=== PATIENT | female | born 1955 | race Caucasian/White ===

== ENCOUNTER 2016-10-21 21:13 | Inpatient (IN) | payer OTHER ==
[~2016-10-21] VITALS: Ht 162.6 cm; Wt 88.5 kg
--- NOTE | ~2016-10-21 | CON ---
[place], [place] REPORT OF CONSULTATION NAME: ASHISH BEE UNIT #: [id number] ROOM: 507 DOCTOR: REGINALD SANTORO,MARCELLUS BIRTHDATE: [birth year] DOS: 10/24/2016 HISTORY OF PRESENT ILLNESS: A 61-year-old patient who presented with chief complaint of rectal bleed, underwent colonoscopic evaluation, was found to have ischemic colitis and meanwhile multiple nodules were found in her lungs that are of concern for metastatic carcinoma. Bone scan was done and normal whole body bone scan. C. diff positive for colitis, C. diff positivity has been noticed. Colonic biopsies were reviewed. ____ has been seen. H and H of 11 and 35. Urine culture, no growth. CT scan of the abdomen and CTA of the abdomen were obtained, which showed mild colitis, left colon and patent mesenteric arteries. 7 mm left pulmonary lobe nodule was identified. Labs reviewed, records reviewed, old data of consultation reflected. PAST MEDICAL HISTORY: Associated with CVA, hyperlipidemia, hemorrhoid, hypertension, diabetes, all have been recognized. PAST SURGICAL HISTORY: Noticed. REVIEW OF SYSTEMS: HEENT: Denies double vision, blurred vision. RESPIRATORY: Denies shortness of breath. CARDIOVASCULAR: Denies chest pain. DIGESTIVE SYSTEM: No hematemesis, no hematochezia. Some diarrhea. PHYSICAL EXAMINATION: VITAL SIGNS: Stable. HEENT: Head normocephalic, nontraumatic. Mouth and buccal mucosa benign. NECK: Supple, no thyromegaly, no cervical lymphadenopathy. CHEST: Symmetric anatomy, equal expansion. No wheeze, no rhonchi. HEART: Normal sinus rhythm, no gallop, no murmur. ABDOMEN: Soft. No hepato-organomegaly. Bowel sounds present. EXTREMITIES: No cyanosis, no pedal edema. NEUROLOGIC: Alert, oriented to time, place and person. IMPRESSION: Colitis, recently found C. diff positivity, lung nodules. Bone scans negative. Oncology consult on board. PLAN AND DISCUSSION: We are going to continue with Flagyl 500 mg IV q.8 hours. We are going to start her with vancomycin 250 mg p.o. q.i.d. from [facility]. Workup in progress. [place], [place] REPORT OF CONSULTATION NAME: ASHISH BEE UNIT #: [id number] ROOM: [facility] DOCTOR: MARCELLUS MONTELONGO MD BIRTHDATE: [birth year] MARCELLUS MONTELONGO MD CM:CONSTR:REPORT OF CONSULTATION 05 10/25/16 0418 interface
--- NOTE | ~2016-10-21 | PROC NOTE ---
[place], [place] PROCEDURE NOTE NAME: ASHISH BEE UNIT #: [id number] ROOM: 507 DOCTOR: MARCELLUS MONTELONGO MD BIRTHDATE: [birth year] DATE: 10/22/16 GASTROENDOSCOPIC REPORT INDICATIONS: The patient has presented with chief complaint of GI bleed, undergoing investigation. The patient has already been seen and assessed. The patient has experienced cramps, abdominal distress, and eventually concerned about being admitted. PAST MEDICAL HISTORY: Diabetes, hypertension, obesity, and hyperlipidemia. PAST SURGICAL HISTORY: Myomectomy, lumpectomy of breast. SOCIAL HISTORY: Social alcohol use and nonsmoker. FAMILY HISTORY: Noncontributory. ALLERGIES: TO METFORMIN. PROCEDURE: Today's procedure part of investigation is colonoscopy. PREMEDICATION: Versed and Diprivan. SCOPE: Olympus forward-viewing colonoscope 10L video. REPORT: After putting the patient in the left lateral position and after application of lubricant to rectal pouch and digital examination, the scope was introduced; thereafter, under direct visualization, I advanced through the length of colon without difficulty. Evidence of ischemic colitis, which is occupying left side of the colon, extending beyond the splenic flexure was noticed. Biopsies and photographic series were obtained. The scope was negotiated to the right colon, which is benign. The patient extubated, tolerated the procedure well. IMPRESSION: Left-sided ischemic colitis with involvement of some of the distal transverse colon, status post biopsy, photographic series. PLAN AND DISCUSSION: CTA of the abdomen, Flagyl 500 mg t.i.d., clear liquid diet, observation and clinical reassessment. CBC and basic metabolic panel tomorrow. [place], [place] PROCEDURE NOTE NAME: ASHISH BEE UNIT #: [id number] ROOM: 507 DOCTOR: MARCELLUS MONTELONGO MD BIRTHDATE: [birth year] MARCELLUS MONTELONGO MD CM:PROCNOTE:PROCEDURE NOTE [id number] MARCELLUS MONTELONGO MD
--- NOTE | ~2016-10-21 | CON ---
[place], [place] REPORT OF CONSULTATION [id number] UNIT #: [id number] ROOM: 507 DOCTOR: MIKAELA ANN MD BIRTHDATE: [birth year] DOS: 10/24/2016 PULMONARY CONSULTATION EVALUATION AND MANAGEMENT REASON FOR CONSULTATION: To assess the patient for pulmonary nodules. HISTORY OF PRESENT ILLNESS: A 61-year-old white female without any known pulmonary problem. The patient admitted to the hospital. The patient has been noted with bleeding, which was noted in the stools. Fresh blood was described. The patient came into the Emergency Room and had been hospitalized on 10/22/2016. The patient denies symptoms of abdominal pain. Denies symptoms of chest pain. The patient has been noted with some diarrhea as well. She is currently being assessed for the current bleeding from the intestine, underwent colonoscopy for this patient and the biopsy was done. CT of the abdomen for was done for this patient, which shows possibly pulmonary nodule in lower portion of the CT of the thorax images. She was recommended for dedicated CT scan of the chest, which was completed for this patient. She denies any symptoms of hemoptysis, coughing, sputum expectoration or any chest pain. REVIEW OF SYSTEMS: The rest of the review of systems for the patient is as follows: CONSTITUTIONAL SYMPTOMS: She has been noted with some fatigue. There was no tiredness, fever or chills. EYES: Denies any burning, redness, or tenderness. EARS, NOSE, THROAT SYMPTOMS: No sore throat, hoarseness, otalgia, postnasal drainage or epistaxis. CARDIOVASCULAR SYSTEM: Denies anginal pain, edema of the lower extremities or palpitations. GASTROINTESTINAL SYMPTOMS: Denies dysphagia, nausea, vomiting, diarrhea, abdominal pain, hematemesis, melena, hematochezia or syncopal episodes. SKIN: Denies any lesions or rashes. MUSCULOSKELETAL: Denies acute joint pain, redness, or tenderness. Remaining systems were reviewed with the patient, they were noted all negative. PAST MEDICAL HISTORY: The patient was reported with, 1. History of essential hypertension. 2. Hyperlipidemia. 3. Colon polyps. 4. Chronic obesity. 5. History of hemorrhoids. 6. Type 2 diabetes mellitus. SURGICAL HISTORY: Noted is, 1. Uterine fibroid removal. 2. Past colonoscopy. 3. Benign bilateral breast biopsies. SOCIAL HISTORY: The patient lives at home. Denies any history of any tobacco use or alcohol use for this patient. She never smoked cigarettes in the past. [place], [place] REPORT OF CONSULTATION NAME: ASHISH BEE UNIT #: [id number] ROOM: 507 DOCTOR: MIKAELA ANN MD BIRTHDATE: [birth year] She is and has 2 children. FAMILY HISTORY: Father at age of 6060 years old, complication of lung cancer. Mother at the age of 73 with complication of acute myocardial infarction. HOME MEDICATIONS: Were listed as use of aspirin, atenolol, enalapril, sliding scale insulin coverage, Levemir insulin, Victoza, Zocor and Januvia. DRUG ALLERGIES: Noted remarkable for allergies with use of METFORMIN. PHYSICAL EXAMINATION: GENERAL: A 61-year-old female who has been currently resting comfortably, sitting on the side of the bed at the time of the assessment. Height of the patient recorded 5 feet 4 inches, weight of 195 pounds, BMI 33.4. VITAL SIGNS: Shows a normal temperature over the last 24 hours, respiratory rate 19-20, heart rate of 61-62, blood pressure 136/60 for the patient to 123/51. HEENT: Head was atraumatic. Eyes, nonicterus. Decreased posterior pharyngeal space. CARDIOVASCULAR SYSTEM: S1, S2 is audible. LUNGS: The patient was noted without any wheezing or crackles. Good breath sounds noted in the lungs bilaterally. ABDOMEN: Soft with chronic obesity. Bowel sound present. EXTREMITIES: Does not show any acute edema, clubbing or cyanosis. CENTRAL NERVOUS SYSTEM: The patient's cranial nerves 2-12 intact. No focal deficits. MUSCULOSKELETAL SYMPTOMS: No deformities. SKIN: Showed no lesions or rashes. LABORATORY DATA: CMP of the patient that was done on October 21 in the Emergency noted normal BUN and creatinine and other LFTs and electrolytes. CBC of the patient on 10/21, WBC count 11.2, hemoglobin, hematocrit and platelet count were normal. PT/PTT for the patient on October 22 were normal. CBC on October 22 for the patient essentially noted normal. BMP on October 22, glucose 132, otherwise normal. The CBC of this morning for this patient, hemoglobin 11.7, hematocrit 35.8, platelet count and WBC count were normal. The abdominal CT ____ for this patient, which was done for this patient on this admission on 10/21 for this patient were noted without any acute abnormalities were described. The mammogram for the patient, which was done on August 12, 2016, was noted negative study. CT scan of the abdomen as a CTA which was done for the patient on 10/22/2016 for the patient described by the radiologist findings of mild colitis involving the left and proximal sigmoid colon ____ patient was described to be patent. A 7 mm left lower lobe pulmonary nodule of the patient was described for this patient as a new finding in the lower portion cuts of CT of the thoracic images. CT scan of the chest for this patient, which was done for the patient without contrast for the patient on 10/23 showed 13 x 11 mm nodule for the patient was noted in the left upper lung. Small area of infiltration atelectasis for the patient was noted in the right lower lobe. Another nodule which was present in the left lower lobe for this patient was also assessed and [place], [place] REPORT OF CONSULTATION NAME: ASHISH BEE UNIT #: [id number] ROOM: 507 DOCTOR: YADIRA SCHMIDT MD,[facility] BIRTHDATE: [birth year] measured as about 7-8 mm in the size. The view of the mediastinal window of the patient is limited because of lack of the IV contrast. Large amount of fat was noted in the mediastinum without any significant obviously visible lymphadenopathy. IMPRESSION: 1. The patient with 2 pulmonary nodules, which were noted in the left lung for this patient, the largest nodule noted at 13 mm in size and the smallest was noted as 7-8 mm in the left lower lobe as an incidental finding, significance of that is unknown. 2. 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 3. The patient with chronic obesity. 4. History of type 2 diabetes mellitus as well. There was no past history of tobacco use. 5. Family history of cancer of the lung, which has been known in this patient's father who at the age of 6060 years old. PLAN OF TREATMENT: At this time, no acute intervention will be necessary for the patient during the current acute hospitalization. Continue to manage ischemic colitis and the GI bleeding for this patient with medical management recommended by the dietetic technician. Outpatient assessment certainly needs to be done for the patient with initial PET scan assessment and possibility of needle aspiration biopsy of the left upper lung for this patient with CT guidance. The current nodule not be clearly seen on the chest x-ray and cannot read with a simple flexible fiberoptic bronchoscope. If the biopsy needs to be done, it could be only performed with the help of navigational bronchoscope, which has not been available. Other previous treatment, plan and management to be continued. Usual care. Further supportive therapy, plan and management. Usual treatment and plan of care. The assessment and management were discussed with the medical management specialist for this patient who is on service for the patient taking care of today, Frederick Reeder. MIKAELA MAY MD CM:CONSTR:REPORT OF CONSULTATION 1252 10/25/16 0013 interface
[~2016-10-21 21:13] MED LIST: ATENOLOL25 MG PO; CALCIUM 600600 M2 PO; DIABETA2.5 MG PO; ENALAPRIL5 MG PO; Ecotrin325 MG PO; FISH OIL1000 MG PO; JANUVIA100 MG PO; LEVEMIR100 U/ML SC; NAPROSYN500 MG PO; NORCO 325 MG-51 TAB PO; NOVOLOG100 U/ML SC; ONGLYZA5 MG PO; PARAFON FORTE500 MG PO; VIBRAMYCIN100 MG PO; VICTOZA; VITAMIN D50000 I3 PO; ZOCOR80 MG PO; ZOFRAN4 MG PO
[2016-10-21 21:18] VITALS: BP 142/82
[2016-10-21 22:14] LABS: BASO % 0.4 % (0.0-1.0); EOS # 0.2 10*3/uL (0.0-0.4); EOS % 1.5 % (1.0-4.0); LYMPH # 1.4 10*3/uL (1.3-4.4); LYMPH % 12.9 % (27.0-41.0); MEAN CELL VOLUME 84.6 fl (81.0-99.0); MEAN CORPUSCULAR HGB 27.6 pg (27.0-31.0); MEAN CORPUSCULAR HGB CONC 32.6 g/dl (33.0-37.0); MEAN PLATELET VOLUME 11.2 fl (9.6-12.3); MONO # 0.7 10*3/uL (0.1-1.0); NEUT # 8.8 10*3/uL (2.3-7.9); NEUT % 78.8 % (47.0-73.0); PLATELET COUNT AUTOMATED 193 10*3/uL (130-400); RED BLOOD COUNT 5.08 10*6/uL (4.10-5.10); RED CELL DISTRI WIDTH 12.9 % (0-14.5); WHITE BLOOD COUNT 11.2 10*3/uL (4.8-10.8)
[2016-10-21 22:28] LABS: ALBUMIN 3.7 gm/dl (3.1-4.5); ALKALINE PHOSPHATASE 80 U/L (45-117); BILIRUBIN, TOTAL 0.5 mg/dl (0.2-1.0); BUN 19 mg/dl (7-24); C-REACTIVE PROTEIN 0.96 MG/DL (0-0.3); CARBON DIOXIDE 28 mmol/L (21-32); CHLORIDE 107 mmol/L (98-107); EST GLOM FILT AFRICAN AMERICAN > 60 ml/min; GLUCOSE 110 mg/dL (65-99); MAGNESIUM 2.1 mg/dL (1.5-2.1); POTASSIUM 3.7 mmol/L (3.5-5.1); SGOT/AST 17 IU/L (3-35); SGPT/ALT 26 U/L (12-78); SODIUM 143 mmol/L (136-145); TOTAL PROTEIN 7.6 gm/dL (6.4-8.2)
[2016-10-21 22:39] LABS: BILIRUBIN 1+ (NEGATIVE); BLOOD NEGATIVE (NEGATIVE); CLARITY SL CLOUDY (CLEAR); COLOR YELLOW (YELLOW); GLUCOSE NEGATIVE (NEGATIVE); KETONE NEGATIVE (NEGATIVE); LEUKO ESTERASE NEGATIVE (NEGATIVE); NITRITE NEGATIVE (NEGATIVE); PH 5.5 (5.0-9.0); PROTEIN 1+ (NEGATIVE); SPECIFIC GRAVITY >= 1.030 (1.005-1.030)
[2016-10-21 22:46] LABS: BACTERIA 3+; URINE REFLEX COMMENT YES (NO)
[2016-10-21 23:03] VITALS: BP 146/78
[2016-10-22] VITALS (7 sets, daily range): BP systolic 114–155; BP diastolic 50–71
[2016-10-22 00:53] LABS: INTERNATIONAL NORM RATIO 1.1 (2.0-3.5); PROTHROMBIN TIME 11.3 SECONDS (9.0-12.4)
[2016-10-22] MEDS ORDERED: LEVEMIR10 ML SC (01:08)
[2016-10-22] MEDS ORDERED: VICTOZA6 MG/ML SC (01:12)
[2016-10-22] MEDS ORDERED: NOVOLOG10 ML SQ (01:16)
[2016-10-22 10:15] LABS: BASO % 0.4 % (0.0-1.0); EOS # 0.2 10*3/uL (0.0-0.4); EOS % 1.8 % (1.0-4.0); HEMATOCRIT 43.2 % (37.0-47.0); HEMOGLOBIN 14.2 g/dl (12.0-16.0); LYMPH # 1.4 10*3/uL (1.3-4.4); LYMPH % 16.9 % (27.0-41.0); MEAN CELL VOLUME 84.5 fl (81.0-99.0); MEAN CORPUSCULAR HGB 27.8 pg (27.0-31.0); MEAN CORPUSCULAR HGB CONC 32.9 g/dl (33.0-37.0); MEAN PLATELET VOLUME 11.1 fl (9.6-12.3); MONO # 0.5 10*3/uL (0.1-1.0); MONO % 5.9 % (3.0-9.0); NEUT # 6.2 10*3/uL (2.3-7.9); NEUT % 74.6 % (47.0-73.0); PLATELET COUNT AUTOMATED 187 10*3/uL (130-400); RED BLOOD COUNT 5.11 10*6/uL (4.10-5.10); WHITE BLOOD COUNT 8.3 10*3/uL (4.8-10.8)
[2016-10-22 10:29] LABS: BUN 16 mg/dl (7-24); CARBON DIOXIDE 25 mmol/L (21-32); CHLORIDE 108 mmol/L (98-107); EST GLOM FILT AFRICAN AMERICAN > 60 ml/min; GLUCOSE 132 mg/dL (65-99); POTASSIUM 4.1 mmol/L (3.5-5.1); SODIUM 144 mmol/L (136-145)
[2016-10-23] VITALS: BP 120/45
[2016-10-23 06:24] LABS: BASO % 0.6 % (0.0-1.0); EOS # 0.1 10*3/uL (0.0-0.4); EOS % 2.8 % (1.0-4.0); LYMPH # 1.2 10*3/uL (1.3-4.4); LYMPH % 23.2 % (27.0-41.0); MEAN CELL VOLUME 85.1 fl (81.0-99.0); MEAN CORPUSCULAR HGB 27.6 pg (27.0-31.0); MEAN CORPUSCULAR HGB CONC 32.4 g/dl (33.0-37.0); MEAN PLATELET VOLUME 11.6 fl (9.6-12.3); MONO # 0.4 10*3/uL (0.1-1.0); MONO % 6.9 % (3.0-9.0); NEUT # 3.4 10*3/uL (2.3-7.9); NEUT % 66.1 % (47.0-73.0); PLATELET COUNT AUTOMATED 168 10*3/uL (130-400); RED BLOOD COUNT 4.35 10*6/uL (4.10-5.10); RED CELL DISTRI WIDTH 12.7 % (0-14.5); WHITE BLOOD COUNT 5.1 10*3/uL (4.8-10.8)
[2016-10-23 06:30] LABS: HEMOGLOBIN A1c 7.3 % (4.8-5.6)
[2016-10-23 06:40] LABS: BUN 10 mg/dl (7-24); CARBON DIOXIDE 27 mmol/L (21-32); CHLORIDE 111 mmol/L (98-107); CHOLESTEROL 194 mg/dL (<200); EST GLOM FILT AFRICAN AMERICAN > 60 ml/min; GLUCOSE 93 mg/dL (65-99); HDL CHOLESTEROL 41 mg/dl (40-60); LDL CHOLESTEROL 127 mg/dL (9-159); PHOSPHOROUS 2.3 mg/dL (2.5-4.9); POTASSIUM 3.7 mmol/L (3.5-5.1); SODIUM 144 mmol/L (136-145); TRIGLYCERIDES 131 mg/dl (<150); VLDL CHOLESTEROL 26 mg/dL (6-40)
[2016-10-23 06:47] LABS: FREE T4 1.15 ng/dl (0.76-1.46); THYROID STIM HORMONE (HS) 0.682 uIU/ml (0.358-4.75)
[2016-10-23 07:30] LABS: VITAMIN D, 25-HYDROXY 19.9 ng/mL (30-100)
[2016-10-23 07:31] LABS: FOLIC ACID 13.6 ng/mL (>5.38)
[2016-10-23 08:00] VITALS: BP 118/52
[2016-10-23 12:00] VITALS: BP 128/48
[2016-10-23 16:00] VITALS: BP 130/54
[2016-10-23 20:38] VITALS: BP 123/51
[2016-10-24] VITALS: BP 116/52
[2016-10-24 06:10] LABS: BASO % 0.6 % (0.0-1.0); EOS # 0.2 10*3/uL (0.0-0.4); HEMATOCRIT 35.8 % (37.0-47.0); HEMOGLOBIN 11.7 g/dl (12.0-16.0); LYMPH # 1.3 10*3/uL (1.3-4.4); LYMPH % 26.7 % (27.0-41.0); MEAN CELL VOLUME 84.2 fl (81.0-99.0); MEAN CORPUSCULAR HGB 27.5 pg (27.0-31.0); MEAN CORPUSCULAR HGB CONC 32.7 g/dl (33.0-37.0); MEAN PLATELET VOLUME 11.5 fl (9.6-12.3); MONO # 0.3 10*3/uL (0.1-1.0); MONO % 7.1 % (3.0-9.0); NEUT # 2.9 10*3/uL (2.3-7.9); NEUT % 61.2 % (47.0-73.0); PLATELET COUNT AUTOMATED 168 10*3/uL (130-400); RED BLOOD COUNT 4.25 10*6/uL (4.10-5.10); RED CELL DISTRI WIDTH 12.9 % (0-14.5); WHITE BLOOD COUNT 4.8 10*3/uL (4.8-10.8)
[2016-10-24 08:00] VITALS: BP 136/60
[2016-10-24 13:00] VITALS: BP 149/62
[2016-10-24 17:17] VITALS: BP 139/59
[2016-10-25] VITALS: BP 149/61
[2016-10-25 06:16] LABS: BASO % 0.4 % (0.0-1.0); EOS # 0.2 10*3/uL (0.0-0.4); EOS % 4.1 % (1.0-4.0); HEMOGLOBIN 11.1 g/dl (12.0-16.0); LYMPH # 1.2 10*3/uL (1.3-4.4); LYMPH % 23.8 % (27.0-41.0); MEAN CELL VOLUME 85.4 fl (81.0-99.0); MEAN CORPUSCULAR HGB 27.9 pg (27.0-31.0); MEAN CORPUSCULAR HGB CONC 32.6 g/dl (33.0-37.0); MEAN PLATELET VOLUME 11.5 fl (9.6-12.3); MONO # 0.4 10*3/uL (0.1-1.0); MONO % 6.8 % (3.0-9.0); NEUT # 3.3 10*3/uL (2.3-7.9); NEUT % 64.5 % (47.0-73.0); PLATELET COUNT AUTOMATED 158 10*3/uL (130-400); RED BLOOD COUNT 3.98 10*6/uL (4.10-5.10); WHITE BLOOD COUNT 5.1 10*3/uL (4.8-10.8)
[2016-10-25 06:36] LABS: BUN 8 mg/dl (7-24); CARBON DIOXIDE 24 mmol/L (21-32); CHLORIDE 114 mmol/L (98-107); EST GLOM FILT AFRICAN AMERICAN > 60 ml/min; GLUCOSE 130 mg/dL (65-99); POTASSIUM 3.8 mmol/L (3.5-5.1); SODIUM 146 mmol/L (136-145)
[2016-10-25 08:00] VITALS: BP 133/52
[2016-10-25] MEDS ORDERED: METRONIDAZOLE500 M1 PO (10:32)
== END 2016-10-25 11:00 | disposition home or self-care (01) | DRG 378 ==
LOC: ED 21:13 → 5E 23:13 → EDHOLD 23:13 → 5E 23:43
PROVIDERS: Emergency Medicine Emergency Medical Services; Internal Medicine; Student in an Organized Health Care Education/Training Program
PROC: 0DBE8ZX Excision of Large Intestine, Via Natural or Artificial Opening Endoscopic, Diagnostic (ICD-10-PCS; principal; 2016-10-22)
DX: K92.2 Gastrointestinal hemorrhage, unspecified (principal); K55.9 Vascular disorder of intestine, unspecified; A04.7 Enterocolitis due to Clostridium difficile; E11.65 Type 2 diabetes mellitus with hyperglycemia; I10 Essential (primary) hypertension; E78.5 Hyperlipidemia, unspecified; K64.9 Unspecified hemorrhoids; D12.5 Benign neoplasm of sigmoid colon; K62.1 Rectal polyp; R80.9 Proteinuria, unspecified; E66.9 Obesity, unspecified; R91.1 Solitary pulmonary nodule; Z80.1 Family history of malignant neoplasm of trachea, bronchus and lung; Z82.49 Family history of ischemic heart disease and other diseases of the circulatory system; Z88.8 Allergy status to other drugs, medicaments and biological substances; Z79.82 Long term (current) use of aspirin; Z79.4 Long term (current) use of insulin; Z79.899 Other long term (current) drug therapy; Z68.30 Body mass index [BMI] 30.0-30.9, adult

== ENCOUNTER → 2016-11-28 | Day surgery (SDC) | payer OTHER ==
[~2016-11-28] VITALS: Ht 162.5 cm; Wt 88.5 kg
[2016-11-28] VITALS (7 sets, daily range): BP systolic 139–175; BP diastolic 58–82
[~2016-11-28] MED LIST changes: +LEVEMIR10 ML SC; +METRONIDAZOLE500 M1 PO; +NOVOLOG10 ML SQ; +VICTOZA6 MG/ML SC
== END | disposition home or self-care (01) ==
LOC: RAD 11-21 13:00 → EDSTATUS 13:00 → SDC 14:38
DX: R91.1 Solitary pulmonary nodule (principal)

== ENCOUNTER 2018-04-13 04:17 | Emergency (ER) | payer OTHER ==
[~2018-04-13] VITALS: Ht 162.5 cm; Wt 81.6 kg
--- NOTE | ~2018-04-13 | EKG ---
[place], [place] ELECTROCARDIOGRAM REPORT NAME: ASHISH BEE UNIT #: [id number] ROOM: DOCTOR: EPIPHANY DRAFT REPORT BIRTHDATE: [birth year] [facility] Test Date: 2018-04-13 Test Time: 05:05:46 Pat Name: ASHISH BEE Department: Room: Gender: F Director Of Flight Operations: : 1955 Requested By: SOPHIE DAVID Order Number: [id number] Reading MD: Lazaro Garcia MD Measurements Intervals Falcon Rate: 75 P: 44 MD: 147 QRS: -26 QRSD: 93 T: 9 QT: 383 QTc: 428 Interpretive Statements Sinus rhythm Poor precordial R-wave progression No previous ECG available for comparison Electronically Signed On 04-13-2018 18:36:55 PDT by Lazaro Garcia MD CM:EKGRPT:ELECTROCARDIOGRAM REPORT [id number] SOPHIE ESCOBAR DRAFT REPORT SOPHIE DAVID DO
[2018-04-13 05:20] LABS: BASO # 0.1 10*3/uL (0.0-0.1); BASO % 0.5 % (0.0-1.0); EOS # 0.2 10*3/uL (0.0-0.4); EOS % 2.3 % (1.0-4.0); HEMATOCRIT 43.4 % (37.0-47.0); LYMPH # 1.4 10*3/uL (1.3-4.4); LYMPH % 14.9 % (27.0-41.0); MEAN CELL VOLUME 84.6 fl (81.0-99.0); MEAN CORPUSCULAR HGB 27.3 pg (27.0-31.0); MEAN CORPUSCULAR HGB CONC 32.3 g/dl (33.0-37.0); MEAN PLATELET VOLUME 11.3 fl (9.6-12.3); MONO # 0.6 10*3/uL (0.1-1.0); MONO % 6.3 % (3.0-9.0); NEUT # 7.1 10*3/uL (2.3-7.9); NEUT % 75.5 % (47.0-73.0); PLATELET COUNT AUTOMATED 210 10*3/uL (130-400); RED BLOOD COUNT 5.13 10*6/uL (4.10-5.10); RED CELL DISTRI WIDTH 13.5 % (0-14.5); WHITE BLOOD COUNT 9.4 10*3/uL (4.8-10.8)
[2018-04-13 05:35] LABS: ALBUMIN 3.9 gm/dl (3.1-4.5); ALKALINE PHOSPHATASE 94 U/L (45-117); BUN 19 mg/dl (7-24); CHLORIDE 106 mmol/L (98-107); CREATININE 1.05 mg/dL (0.55-1.02); LIPASE 287 U/L (73-393); SGOT/AST 20 IU/L (3-35); SGPT/ALT 42 U/L (12-78); SODIUM 140 mmol/L (136-145); TOTAL PROTEIN 7.8 gm/dL (6.4-8.2)
== END 2018-04-13 06:58 | disposition home or self-care (01) ==
LOC: ED 04:17
PROVIDERS: Emergency Medicine
DX: J98.01 Acute bronchospasm (principal); K59.8 Other specified functional intestinal disorders; I10 Essential (primary) hypertension; E11.9 Type 2 diabetes mellitus without complications; E78.5 Hyperlipidemia, unspecified; Z88.8 Allergy status to other drugs, medicaments and biological substances; Z79.4 Long term (current) use of insulin; Z79.82 Long term (current) use of aspirin; Z79.899 Other long term (current) drug therapy; Z86.73 Personal history of transient ischemic attack (TIA), and cerebral infarction without residual deficits; Z85.118 Personal history of other malignant neoplasm of bronchus and lung; Z98.890 Other specified postprocedural states

== ENCOUNTER → 2018-12-08 | Outpatient (CLI) | payer OTHER ==
[2018-12-08 08:24] LABS: HEMATOCRIT 45.7 % (37.0-47.0); HEMOGLOBIN 14.2 g/dl (12.0-16.0); MEAN CELL VOLUME 87.7 fl (81.0-99.0); MEAN CORPUSCULAR HGB 27.3 pg (27.0-31.0); MEAN CORPUSCULAR HGB CONC 31.1 g/dl (33.0-37.0); MEAN PLATELET VOLUME 11.1 fl (9.6-12.3); RED BLOOD COUNT 5.21 10*6/uL (4.10-5.10); RED CELL DISTRI WIDTH 14.7 % (0-14.5); WHITE BLOOD COUNT 6.6 10*3/uL (4.8-10.8)
[2018-12-08 08:45] LABS: ALBUMIN 3.9 gm/dl (3.1-4.5); ALKALINE PHOSPHATASE 100 U/L (45-117); BUN 17 mg/dl (7-24); CHLORIDE 110 mmol/L (98-107); CHOLESTEROL 159 mg/dL (<200); CREATININE 0.98 mg/dL (0.55-1.02); HDL CHOLESTEROL 52 mg/dl (40-60); LDL CHOLESTEROL 88 mg/dL (9-159); POTASSIUM 3.9 mmol/L (3.5-5.1); SGOT/AST 16 IU/L (3-35); SGPT/ALT 32 U/L (12-78); SODIUM 143 mmol/L (136-145); TRIGLYCERIDES 97 mg/dl (<150); VLDL CHOLESTEROL 19 mg/dL (6-40)
== END | disposition home or self-care (01) ==
LOC: LAB 07:47
PROVIDERS: Physician Assistant
DX: E11.9 Type 2 diabetes mellitus without complications (principal); I10 Essential (primary) hypertension

== ENCOUNTER 2019-05-24 18:12 | Emergency (ER) | payer OTHER ==
[~2019-05-24] VITALS: Ht 162.5 cm; Wt 88.5 kg
[2019-05-24] MEDS ORDERED: VIBRAMYCIN100 MG PO (19:46)
[2019-05-24] MEDS ORDERED: TESSALON PERLE100 M1 PO (19:46)
== END 2019-05-24 20:04 | disposition home or self-care (01) ==
LOC: ED 18:12
DX: J06.9 Acute upper respiratory infection, unspecified (principal); I10 Essential (primary) hypertension; E11.9 Type 2 diabetes mellitus without complications; Z85.118 Personal history of other malignant neoplasm of bronchus and lung; Z88.8 Allergy status to other drugs, medicaments and biological substances; Z79.899 Other long term (current) drug therapy; Z79.4 Long term (current) use of insulin; Z79.82 Long term (current) use of aspirin; Z86.73 Personal history of transient ischemic attack (TIA), and cerebral infarction without residual deficits

== ENCOUNTER 2019-10-18 12:32 | Inpatient (IN) | payer OTHER ==
[~2019-10-18] VITALS: Ht 162.5 cm; Wt 79.2 kg
[~2019-10-18 12:32] MED LIST changes: +TESSALON PERLE100 M1 PO
[2019-10-18 12:39] VITALS: BP 152/70
[2019-10-18 13:28] LABS: HEMATOCRIT 49.8 % (37.0-47.0); MEAN CELL VOLUME 85.4 fl (81.0-99.0); MEAN CORPUSCULAR HGB 27.8 pg (27.0-31.0); MEAN CORPUSCULAR HGB CONC 32.5 g/dl (33.0-37.0); MEAN PLATELET VOLUME 11.3 fl (9.6-12.3); PLATELET COUNT AUTOMATED 188 10*3/uL (130-400); RED BLOOD COUNT 5.83 10*6/uL (4.10-5.10); RED CELL DISTRI WIDTH 13.1 % (0-14.5); WHITE BLOOD COUNT 8.1 10*3/uL (4.8-10.8)
[2019-10-18 13:38] LABS: ACT PARTIAL THROMBO TIME 25.2 SECONDS (20.0-32.1)
[2019-10-18 13:44] LABS: ALKALINE PHOSPHATASE 110 U/L (45-117); BUN 19 mg/dl (7-24); CHLORIDE 107 mmol/L (98-107); LIPASE 99 U/L (73-393); POTASSIUM 3.6 mmol/L (3.5-5.1); SGOT/AST 19 IU/L (3-35); SGPT/ALT 31 U/L (12-78); SODIUM 137 mmol/L (136-145); TOTAL PROTEIN 8.3 gm/dL (6.4-8.2)
[2019-10-18 13:45] LABS: TROPONIN I < 0.015 ng/ml (<0.045)
--- NOTE | 2019-10-18 13:46 | NUR ---
LAB CALLED WITH CRITICAL LACTIC OF 2.7. DR. RUSSELL NOTIFIED.
[2019-10-18 13:47] LABS: ATYPICAL LYMPHS 1 % (0-0); PLATELET SUFFICIENCY NORMAL (NORMAL); TOTAL CELLS COUNTED 100 #CELLS
[2019-10-18 14:15] LABS: BILIRUBIN NEGATIVE (NEGATIVE); CLARITY SL CLOUDY (CLEAR); COLOR YELLOW (YELLOW); GLUCOSE 2+ (NEGATIVE); KETONE TRACE (NEGATIVE)
[2019-10-18 14:16] LABS: BLOOD 1+ (NEGATIVE); SPECIFIC GRAVITY 1.015 (1.005-1.030); UROBILINOGEN 0.2 E.U./dl (0.2-1.0)
[2019-10-18 14:21] LABS: LEUKO ESTERASE NEGATIVE (NEGATIVE); NITRITE NEGATIVE (NEGATIVE)
[2019-10-18 14:26] LABS: BACTERIA 3+; YEAST 2+
[2019-10-18 16:45] VITALS: BP 150/64
--- NOTE | 2019-10-18 16:47 | NUR ---
THIS NURSE GOES IN TO CHECK ON PATIENT AND NOTICED THAT HER IV WAS OUT AND HER FLUIDS WERE LEAKING. SO THIS NURSE GOES TO GET PATIENT UP AND SHE NEEDED ASSIST TO THE SINK TO WASH HER HAND. PT SEEMED CONFUSED, HOWEVER SHE KNEW WHERE SHE WAS AND WHAT DAY AND YEAR IT WAS. PT WAS GIVEN NAUSEA MEDICATION THAT SHE HAD NEVER HAD. PT ASSISTED BACK TO BED AND THIS NURSE WENT TO GET DR. RUSSELL AND HE CAME TO ASSESS PT.
--- NOTE | 2019-10-18 17:32 | NUR ---
PT RESTING IN BED WATCHING TV. WAS ASSISTED TO BATHROOM IN WHEELCHAIR. PT ANSWERING QUESTIONS APPROPRIATELY. CALL LIGHT WITHIN REACH.
[2019-10-18 17:46] VITALS: BP 152/64
--- NOTE | 2019-10-18 19:16 | NUR ---
THIS NURSE WENT TO CHECK PATIENTS GLUCOSE AND IT CAME BACK 40. DR. DAVID NOTIFIED. ORDER BY DR. MARQUEZ TO GIVE PRN FLOOR ORDER FOR DEXTROSE 10 250 ML/HR.
--- NOTE | 2019-10-18 19:16 | NUR ---
MEDICATION ORDER FOR D10W WAS VERIFIED BY JOSEPH PACHECO.
[2019-10-18 19:30] VITALS: BP 137/59
--- NOTE | 2019-10-18 20:00 | NUR ---
CALLED THE [facility] FLOOR AND THEY THEY STATED THE NURSE WILL NOW BE TYRONE BAUTISTA. ROOM IS JUST NOW BEING CLEANED.
--- NOTE | 2019-10-18 20:12 | NUR ---
SPOKE TO DR. MARCELINO AND GAVE BLOOD GLUCOSE OF 147. ASKED IF HE WASNTED TO CONTINUE THE D10W OR IF HE WANTED TO STOPP IT. HE STATED HE WOULD LIKE IT STOPPED. PT IS RESTING IN BED. STATES SHE FEELSA BETTER AFTER EATING AND GETTING THE MEDICATION. ATE TURKEY SANDWICH WITH DIET EMELY RIANNA.
--- NOTE | 2019-10-18 20:25 | NUR ---
PT RESTING IN BED, DENIES THE NEED FOR ANYTHING AT THIS TIME. PT STATES THAT SHE FEELS ALOT BETTER AND DENIES ANY NAUSEA OR VOMITING AFTER EATING. CALL LIGHT WITHIN REACH.
[2019-10-18 20:38] VITALS: BP 146/56
--- NOTE | 2019-10-18 20:38 | NUR ---
A 64, admitted to , under the services of DANIEL Bender DO with a diagnosis of DIZZINESS. Chief complaint is DIZZINESS. Patient arrived via stretcher from ER. Monitor applied. Initial assessment completed. Vital signs taken and recorded. DANIEL BENDER DO notified of admission to the unit. Orders received. See assessment for past medical history, medications and allergies. Patient and/or family oriented to unit. [facility] reviewed. Clothing/patient valuable form completed. TYRONE HERZOG
[2019-10-18 20:49] VITALS: BP 146/56
[2019-10-18] MEDS ORDERED: Lopressor25 MG PO (21:02)
--- NOTE | 2019-10-18 21:06 | NUR ---
MED REC COMPLETED WITH PATIENT. DR ROTH AT BEDSIDE. PATIENT ALERT AND ORIENTED TO PERSON PLACE AND TIME
[2019-10-19] VITALS: BP 149/64
[2019-10-19 06:14] LABS: BUN 13 mg/dl (7-24); CHLORIDE 115 mmol/L (98-107); CREATININE 0.61 mg/dL (0.55-1.02); PHOSPHOROUS 3.1 mg/dL (2.5-4.9); POTASSIUM 3.3 mmol/L (3.5-5.1); SODIUM 142 mmol/L (136-145)
[2019-10-19 06:15] LABS: BASO % 0.2 % (0.0-1.0); EOS % 0.4 % (1.0-4.0); HEMATOCRIT 42.9 % (37.0-47.0); LYMPH # 0.5 10*3/uL (1.3-4.4); LYMPH % 8.8 % (27.0-41.0); MEAN CELL VOLUME 86.3 fl (81.0-99.0); MEAN CORPUSCULAR HGB 27.8 pg (27.0-31.0); MEAN CORPUSCULAR HGB CONC 32.2 g/dl (33.0-37.0); MONO # 0.4 10*3/uL (0.1-1.0); MONO % 7.1 % (3.0-9.0); NEUT # 4.5 10*3/uL (2.3-7.9); NEUT % 83.1 % (47.0-73.0); PLATELET COUNT AUTOMATED 174 10*3/uL (130-400); RED BLOOD COUNT 4.97 10*6/uL (4.10-5.10); RED CELL DISTRI WIDTH 13.3 % (0-14.5); WHITE BLOOD COUNT 5.5 10*3/uL (4.8-10.8)
--- NOTE | 2019-10-19 06:24 | NUR ---
NOTIFIED OF PT GLUCOSE 39. NEW ORDERS RECEIVED.
[2019-10-19 08:00] VITALS: BP 186/74
--- NOTE | 2019-10-19 08:40 | NUR ---
PT RESTING IN BED. NO DISTRESS NOTED. WILL MONITOR
--- NOTE | 2019-10-19 10:45 | NUR ---
Occupational therapy orders received and OT evaluation completed in full on floor four. Patient precautions include fall risk, new WW use, decreased standing balance, h/o stroke with LUE weakness, h/o lung CA, low back pain. Per OT eval, OT recommend SNF. If refused, home with HH SN, OT, and PT with 26/01 supervision assist. Patient educated on benefits of SNF and declined, edu on HH and did not seem interested, edu on WW and shower chair and did not seem interested. Patient stated her son will be staying with her once discharged. Patient would benefit from continued OT to maximize safety and independence with ADLs, transfers, and mobility[place], [id number]. Thank you for the referral. Zena Brown, OTR/L
--- NOTE | 2019-10-19 10:50 | NUR ---
Physical Therapy evaluation completed on with full evaluation to follow. Recommend physical therapy per plan of care, pt would benefit from further therapy/rehab prior to discharge however stating she will go home only. States her son will be with her. Trialed use of FWW due to hx falls at home LOB with ambulation during eval and LBP of which balance/mobility improved, however does not want to have at home. Discussed follow up HH and pt agreeable to speaking w case managment reg further information. Would recomend home with family for assist/safety and follow up HH upon discharge if pt agreeable. Thank you for this referral. Ely Armstrong PT
[2019-10-19 12:00] VITALS: BP 122/55
--- NOTE | 2019-10-19 13:02 | NUR ---
Reptile Farmer in to talk to patient. Patient states lives at home with alone. There are 2 steps in the home. Physician: geneva campa Pharmacy: [facility] [place] [facility] services: none Patient's level of ADLs: MINIMAL ASSIST Patient has working utilities: all working DME: none Follow-up physician's appointment after d/c: will be made by hospitalist nurse director upon discharge Does patient want to access PORTAL?: no Discharge plan discussed with patient, she states she lives at home alone, and is independent in adls and ambulation, she states he son will be staying with her for a couple of weeks when she is discharge. discussed with her physical therapies recommendation for a short term [facility] for rehab prior to returning home, educated her of area facilities and that she would received 24 hour care and 5 days of physical therapy prior to returning home, she stated she really didn't want to go to a SNF but she would think about it. case management will follow up with patient at a later time. ALLI LEONARDO
--- NOTE | 2019-10-19 13:06 | NUR ---
SPOKE WITH DR FAIRCHILD REGARDING GIVING COVERAGE FOR GLUCOSE OF 205 DR FAIRCHILD STATES TO HOLD COVERAGE AT THIS TIME
--- NOTE | 2019-10-19 13:07 | NUR ---
case management also discussed with patient not being able to afford her medications, case management discussed with her her insurance and asked how much her copay for her medications was each time her medications were filled. patient did not know how much her co pay was. discussed with her filling her prescriptions in the hospital pharmacy for a few dollars a prescripton, she stated she would consider doing that, case managemnet will follow
[2019-10-19 16:00] VITALS: BP 117/52
[2019-10-19 20:00] VITALS: BP 143/61
--- NOTE | 2019-10-19 21:22 | NUR ---
PATIENT RESTING IN CHAIR AT BEDSIDE WITH NO NEEDS MADE. STATES SHE FEELS MUCH BETTER THIS EVENING. PATIENT ENCOURAGED TO USE CALL LIGHT IF NEEDING TO AMBULATE. VERBALIZED UNDERSTANDING. BED IN LOWEST POSITION, CALL LIGHT IN REACH
[2019-10-20] VITALS: BP 142/60
[2019-10-20 06:31] LABS: BUN 11 mg/dl (7-24); CHLORIDE 111 mmol/L (98-107); CREATININE 0.78 mg/dL (0.55-1.02); POTASSIUM 3.7 mmol/L (3.5-5.1); SODIUM 141 mmol/L (136-145)
[2019-10-20 08:00] VITALS: BP 142/60
--- NOTE | 2019-10-20 08:30 | NUR ---
case management spoke to patient regarding short term nursing home vs home health, patient declined a short term nursing home, she states her son will be staying with her for a couple of weeks, also discussed with her [facility] and educated her on the services they provide, she stated she did not want any home health, that she has large dogs and did not want anyone in her home. educated her that she would place the dogs in another room while [facility] is visiting. she continues to decline any home services, case management will follow
--- NOTE | 2019-10-20 09:40 | NUR ---
PHYSICAL THERAPY Patient seen this am 1;1 for therapy visit and was sitting up in bedside chair upon therapist arrival. Patient identified by name / and reports no c/o's of dizziness this morning. OT administrative personal assistant was also present for observation only this session as patient instructed on visual fixation technique prior to sit to stand transfer. Patient completed sit to stand transfer CGA x 1, demonstrating slow rise and no c/o of dizziness, followed by gait training. Patient ambulates without AD, CGA, 25'x 1, then additional 40'x 1, demonstrating bouts of impulsive behaviour, with increased gait speed. Patient also unsteady during all 90/180 turns and completed eyes open / closed with no LOB. Patient tolerated single leg stance ex, L side 2 seconds, R side 8 seconds before LOB. Patient returned to bedside chair and remained with call light, tray table, telephone and body alarm for safety. Will continue per POC as tolerated, total treatment time 18 minutes. Zach Queen, HOUSE VISITOR
[2019-10-20] MEDS ORDERED: ASPIR 8181 MG PO (09:46)
[2019-10-20] MEDS ORDERED: ZOFRAN4 MG PO (09:46)
--- NOTE | 2019-10-20 09:50 | NUR ---
OT NOTE Pt was seen this A.M. 1:1 for 20 minute OT session. Upon arrival pt was sitting upright in the recliner. Pt identified by name and and had no complaints at this time. Pt completed sit to stand from chair level with CGA. Pt required verbal prompts for slowing down due to being impulsive and increasing risk of falls. Functional mobility was then completed to the bathroom with CGA QUALITY CONTROL SCIENTIST, again requiring constant verbal prompts for slowing down due to being impulsive. Pt transferred on/off standard commode with CGA and use of grab bar for UE support. Pt then stood sink side while washing her hands with CGA for safety. Challenged pt's dynamic standing balance while weight shifting, crossing midline, and reaching over all planes. Pt was able to maintain G- standing balance throughout. Pt was left sitting upright in the recliner with call light in hand, tray table in place, and body alarm activated for safety. Continue with rec D/C plan to SNF. CASSANDRA Ballesteros
--- NOTE | 2019-10-20 11:27 | NUR ---
Nutritional Support Services Note: Pt instructed on 1800cal diabetic diet. Diet copy given to pt. Pt listened, all questions were answered. She has been a diabetic since 1996, and states she complies with diet. HgbA1c is 9.5. Encouraged healthy eating and proper portion sizes. Encouraaged follow up if needed. Lisa Lu Rdn Ld
--- NOTE | 2019-10-20 13:09 | NUR ---
Discharge instructions reviewed with patient/family. Patient receptive and verbalizes understanding. Follow-up care arranged. Written instructions given to patient/family. BLANKA CHANCE
--- NOTE | 2019-10-20 16:19 | NUR ---
PHYSICAL THERAPY CO-SIGN I approve of the Physical Therapy notes written above. DEREK MOORE, PT,DPT
--- NOTE | 2019-10-20 16:28 | NUR ---
OCCUPATIONAL THERAPY CO-SIGN I approve of the Occupational Therapy notes written above. SHAHEEN DOVE, OTR/L
== END 2019-10-20 13:09 | disposition home or self-care (01) | DRG 871 ==
LOC: ED 12:32 → 4E 18:26 → EDHOLD 18:26 → 4E 19:32
PROVIDERS: Emergency Medicine; Internal Medicine; Student in an Organized Health Care Education/Training Program; ADMIT Internal Medicine
DX: A41.9 Sepsis, unspecified organism (principal); G93.41 Metabolic encephalopathy; C34.90 Malignant neoplasm of unspecified part of unspecified bronchus or lung; N39.0 Urinary tract infection, site not specified; R65.20 Severe sepsis without septic shock; E86.0 Dehydration; D75.1 Secondary polycythemia; A08.4 Viral intestinal infection, unspecified; R29.6 Repeated falls; E11.65 Type 2 diabetes mellitus with hyperglycemia; I10 Essential (primary) hypertension; E78.5 Hyperlipidemia, unspecified; E83.51 Hypocalcemia; E87.8 Other disorders of electrolyte and fluid balance, not elsewhere classified; E11.649 Type 2 diabetes mellitus with hypoglycemia without coma; Z79.4 Long term (current) use of insulin; Z86.73 Personal history of transient ischemic attack (TIA), and cerebral infarction without residual deficits; Z82.49 Family history of ischemic heart disease and other diseases of the circulatory system; Z80.1 Family history of malignant neoplasm of trachea, bronchus and lung; Z88.8 Allergy status to other drugs, medicaments and biological substances; Z79.899 Other long term (current) drug therapy; Z79.82 Long term (current) use of aspirin

== ENCOUNTER 2021-01-04 20:53 | Emergency (ER) | payer OTHER ==
[~2021-01-04] VITALS: Ht 152.4 cm; Wt 104.3 kg
[~2021-01-04 20:53] MED LIST changes: +ASPIR 8181 MG PO; +Lopressor25 MG PO
== END 2021-01-04 23:45 ==
LOC: ED 20:53
DX: I46.9 Cardiac arrest, cause unspecified (principal); R06.03 Acute respiratory distress; Z88.8 Allergy status to other drugs, medicaments and biological substances; Z79.899 Other long term (current) drug therapy; Z79.82 Long term (current) use of aspirin; Z79.4 Long term (current) use of insulin; Z98.890 Other specified postprocedural states; Z87.42 Personal history of other diseases of the female genital tract